=== PATIENT | female | born 1945 | race Two or more races ===

== ENCOUNTER → 2016-11-11 | Outpatient (CLI) | payer MEDICARE ==
--- NOTE | 2016-11-16 07:51 | MM ---
Reason for exam: screening (asymptomatic). Last mammogram was performed 1 year ago. History: Patient is postmenopausal. Family history of breast cancer in maternal aunt. Benign excisional biopsy of the right breast. Physical Findings: A clinical breast exam by your physician is recommended on an annual basis and results should be correlated with mammographic findings. MG 3D Screening Mammo W/Cad Bilateral CC and MLO view(s) were taken. Prior study comparison: November 11, 2015, bilateral MG 3d screening mammo w/cad. August 29, 2014, bilateral MG screening mammo w CAD. There are scattered fibroglandular densities. There is chronic nodularity in the left breast. No significant changes when compared with prior studies. ASSESSMENT: Benign, BI-RAD 2 RECOMMENDATION: Routine screening mammogram of both breasts in 1 year.
== END | disposition home or self-care (01) ==
LOC: RADMAMWWP 11:25
PROVIDERS: ATTEND Family Medicine
DX: Z12.31 Encounter for screening mammogram for malignant neoplasm of breast (principal)
CPT/HCPCS: 77063; G0202

== ENCOUNTER → 2017-07-04 | Outpatient (CLI) | payer MEDICARE ==
--- NOTE | 2017-07-06 10:01 | P.ARTDOP ---
Arterial Doppler LOWER EXTREMITY ARTERIAL DOPPLER: DATE OF SERVICE: 07/04/2017 Reason for study: Right great toe ulcer. Doppler waveforms: Multiphasic bilaterally throughout. Pulse volume recording: Fairly normal configuration. Pressure gradients: Mild gradient above the ankle. Ankle-brachial indices: 0.93 on the right and 0.83 on the left. Toe pressures: 81 on the right, 100 on the left Impression: Mild femoral popliteal disease. Toe perfusion probably adequate for healing..
== END | disposition home or self-care (01) ==
LOC: RADUSWWP 12:47
PROVIDERS: ATTEND Family Medicine
DX: I74.3 Embolism and thrombosis of arteries of the lower extremities (principal)
CPT/HCPCS: 93923

== ENCOUNTER → 2017-12-23 | Outpatient (CLI) | payer MEDICARE ==
--- NOTE | 2017-12-27 09:12 | MM ---
Reason for exam: screening (asymptomatic). Last mammogram was performed 1 year and 1 month ago. History: Patient is postmenopausal. Family history of breast cancer in maternal aunt. Benign excisional biopsy of the right breast. Physical Findings: A clinical breast exam by your physician is recommended on an annual basis and results should be correlated with mammographic findings. MG 3D Screening Mammo W/Cad Bilateral CC, MLO, and XCCL view(s) were taken. Prior study comparison: November 11, 2016, bilateral MG 3d screening mammo w/cad. November 11, 2015, bilateral MG 3d screening mammo w/cad. The breast tissue is heterogeneously dense. This may lower the sensitivity of mammography. Stable scattered bilateral regional calcifications. No significant changes when compared with prior studies. ASSESSMENT: Negative, BI-RAD 1 RECOMMENDATION: Routine screening mammogram of both breasts in 1 year.
== END | disposition home or self-care (01) ==
LOC: RADMAMWWP 13:51
PROVIDERS: ATTEND Family Medicine
DX: Z12.31 Encounter for screening mammogram for malignant neoplasm of breast (principal)
CPT/HCPCS: 77063; 77067

== ENCOUNTER → 2019-01-31 | Outpatient (CLI) | payer MEDICARE ==
--- NOTE | 2019-02-02 11:46 | MM ---
Reason for exam: screening (asymptomatic). Last mammogram was performed 1 year and 1 month ago. History: Patient is postmenopausal. Family history of breast cancer in maternal aunt. Benign excisional biopsy of the right breast. Physical Findings: A clinical breast exam by your physician is recommended on an annual basis and results should be correlated with mammographic findings. MG 3D Screening Mammo W/Cad Bilateral CC and MLO view(s) were taken. Prior study comparison: December 23, 2017, bilateral MG 3d screening mammo w/cad. November 11, 2016, bilateral MG 3d screening mammo w/cad. The breast tissue is heterogeneously dense. This may lower the sensitivity of mammography. Benign vascular and scattered punctate calcifications. Oil cyst calcifications right upper outer quadrant. No significant changes when compared with prior studies. ASSESSMENT: Benign, BI-RAD 2 RECOMMENDATION: Routine screening mammogram of both breasts in 1 year.
== END | disposition home or self-care (01) ==
LOC: RADMAMWWP 11:22
PROVIDERS: ATTEND Family Medicine
DX: Z12.31 Encounter for screening mammogram for malignant neoplasm of breast (principal); Z80.3 Family history of malignant neoplasm of breast
CPT/HCPCS: 77063; 77067

== ENCOUNTER → 2019-04-18 | Outpatient (CLI) | payer MEDICARE ==
[2019-04-18 15:29] LABS: African American GFR (CKD) >90 (>60 ml/min/1.73 sqM); Blood Urea Nitrogen 15 mg/dL (7-17); Non-African American GFR(CKD) >90 (>60 ml/min/1.73 sqM)
--- NOTE | 2019-04-18 16:14 | CT ---
EXAMINATION TYPE: CT brain w con DATE OF EXAM: 04/18/2019 COMPARISON: None HISTORY: Head trauma, back of head, from fall. Pt denies LOC/lacerations. C/o dizziness. CT DLP: 1133.30 mGycm Automated exposure control for dose reduction was used. CONTRAST: CT scan of the head is performed with IV Contrast, patient injected with 100 mL of Isovue 300. FINDINGS: There is no abnormal enhancing mass or midline shift identified. The ventricles and sulci are within normal limits in size. The globes are intact and the visualized sinuses are clear. IMPRESSION: No enhancing lesions seen. No this time.
== END | disposition home or self-care (01) ==
LOC: RADCTMAIN 14:49
PROVIDERS: ATTEND Family Medicine
DX: S09.8XXA Other specified injuries of head, initial encounter (principal)
CPT/HCPCS: 82565; 84520; 70460; 36415; Q9967

== ENCOUNTER → 2020-05-06 | Outpatient (CLI) | payer MEDICARE ==
--- NOTE | 2020-05-08 14:35 | MM ---
Reason for exam: screening (asymptomatic). Last mammogram was performed 1 year and 3 months ago. History: Patient is postmenopausal. Family history of breast cancer in maternal aunt. Benign excisional biopsy of the right breast. Physical Findings: A clinical breast exam by your physician is recommended on an annual basis and results should be correlated with mammographic findings. MG Screening Mammo w CAD Bilateral CC and MLO view(s) were taken. Prior study comparison: January 31, 2019, bilateral MG 3d screening mammo w/cad. December 23, 2017, bilateral MG 3d screening mammo w/cad. The breast tissue is heterogeneously dense. This may lower the sensitivity of mammography. Scattered punctate oil cyst and vascular calcifications. No significant changes when compared with prior studies. ASSESSMENT: Benign, BI-RAD 2 RECOMMENDATION: Routine screening mammogram of both breasts in 1 year.
== END | disposition home or self-care (01) ==
LOC: RADMAMWWP 13:35
PROVIDERS: ATTEND Family Medicine
DX: Z12.31 Encounter for screening mammogram for malignant neoplasm of breast (principal); Z80.3 Family history of malignant neoplasm of breast
CPT/HCPCS: 77067

== ENCOUNTER → 2021-04-23 | Outpatient (CLI) | payer MEDICARE | END | disposition home or self-care (01) | LOC: RADUSWWP 12:06 | PROVIDERS: ATTEND Family Medicine | DX: I73.9 Peripheral vascular disease, unspecified (principal) | CPT/HCPCS: 93922 ==

== ENCOUNTER 2021-09-17 05:54 | Day surgery (SDC) | payer MEDICARE ==
[2021-09-15 12:15] VITALS: BMI 32.3
[2021-09-17] MEDS ORDERED: SODIUM CHLORIDE 0.9% 1,000 ML in EMPTY BAG 1 BAG IV SCH ×2 (06:00→08:45)
[2021-09-17] MEDS ORDERED: NITROGLYCERIN SL TABS 0.4 MG TAB SUBLINGUAL PRN ×2 (06:00→08:34)
[2021-09-17] MEDS ORDERED: HEPARIN SODIUM,PORCINE 2,500 UNIT in SODIUM CHLORIDE 0.9% 250 ML IRRIGATION PRN (06:00)
[2021-09-17] MEDS ORDERED: ALPRAZolam 0.25 MG TAB PO PRN (06:00)
[2021-09-17] MEDS ORDERED: ALPRAZolam 0.5 MG TAB PO PRN (06:00)
[2021-09-17] MEDS ORDERED: SODIUM CHLORIDE 0.9% 1,000 ML IV ONE (06:08)
[2021-09-17 06:34] LABS: Glucose,Whole Blood 120 mg/dL (70-110)
[2021-09-17 06:35] VITALS: RESP 16; TEMP 99.1
[2021-09-17 06:44] LABS: Basophils # (A) 0.1 k/uL (0-0.2); Basophils % (A) 1 %; Eosinophils # (A) 0.2 k/uL (0-0.7); Eosinophils % (A) 3 %; HCT 34.1 % (34.0-46.0); HGB 11.4 gm/dL (11.4-16.0); Lymphocytes # (A) 1.3 k/uL (1.0-4.8); Lymphocytes % (A) 18 %; MCH 32.4 pg (25.0-35.0); MCHC 33.4 g/dL (31.0-37.0); Mean Platelet Volume 7.8; Monocytes # (A) 0.6 k/uL (0-1.0); Monocytes % (A) 8 %; Neutrophils # (A) 4.8 k/uL (1.3-7.7); Neutrophils % (A) 68 %; Platelet Count 179 k/uL (150-450); RBC 3.52 m/uL (3.80-5.40); RDW 13.2 % (11.5-15.5); WBC 7.1 k/uL (3.8-10.6)
[2021-09-17 06:57] LABS: African American GFR (CKD) >90 (>60 ml/min/1.73 sqM); Anion Gap 9 mmol/L; Blood Urea Nitrogen 25 mg/dL (7-17); Calcium 9.1 mg/dL (8.4-10.2); Carbon Dioxide 26 mmol/L (22-30); Chloride 104 mmol/L (98-107); Glucose 126 mg/dL (74-99); Non-African American GFR(CKD) 90 (>60 ml/min/1.73 sqM); Sodium 139 mmol/L (137-145)
[2021-09-17] MEDS ORDERED: ATORVASTATIN 80 MG TAB PO ONE (07:00)
[2021-09-17] MEDS ORDERED: HEPARIN SODIUM,PORCINE 10,000 UNIT in SODIUM CHLORIDE 0.9% 1,000 ML IRRIGATION PRN (07:00)
[2021-09-17] MEDS ORDERED: ASPIRIN 325 MG TAB PO ONE (07:00)
[2021-09-17] MEDS ORDERED: fentaNYL (PF) 50 MCG/ML 2 ML AMP ONE (07:21)
[2021-09-17] MEDS ORDERED: VERAPAMIL 2.5 MG/ML 2 ML AMP ONE (07:21)
[2021-09-17] MEDS ORDERED: HEPARIN SODIUM 1,000 UN/ML (10ML VL) ONE (07:22)
[2021-09-17] MEDS ORDERED: fentaNYL (PF) 50 MCG/ML 2 ML AMP IV ONE (07:32)
[2021-09-17] MEDS ORDERED: LIDOCAINE 1% INJ 10MG/ML (5 ML VIAL-PF) SQ ONE (07:34)
[2021-09-17] MEDS ORDERED: VERAPAMIL SYRINGE (5 MG/10 ML) INTRAARTER ONE (07:37)
[2021-09-17] MEDS: HEPARIN SODIUM 1,000 UN/ML (10ML VL) IV ONE ×3 (07:42→08:05)
[2021-09-17] MEDS ORDERED: CLOPIDOGREL 75 MG TAB ONE (07:47)
[2021-09-17] MEDS ORDERED: CLOPIDOGREL 75 MG TAB PO ONE (07:48)
[2021-09-17] MEDS ORDERED: IOPAMIDOL-370 125ML BTL INJ ONE ×2 (08:21→08:30)
[2021-09-17] MEDS ORDERED: ZOLPIDEM 5 MG TAB PO PRN (08:34)
[2021-09-17] MEDS ORDERED: MAG HYDROX/AL HYDROX/SIMETH 30 ML CUP PO PRN (08:34)
[2021-09-17] MEDS ORDERED: ATROPINE SULFATE 0.1 MG/ML 10ML SYRINGE IV PRN (08:34)
[2021-09-17] MEDS ORDERED: RX INFO: IV CONTRAST WAS GIVEN 1 EACH MISC MISCELLANE PRN (08:34)
--- NOTE | 2021-09-17 08:45 | P.CARDCATH ---
Date of Procedure: 09/17/21 Description of Procedure: Cardiac Catheterization: The patient is a 76-year-old female with a known history of hypertension, hyperlipidemia and diabetes mellitus who has been complaining of symptoms of chest discomfort and had an abnormal MPI with anterior wall reversible defect. Recommendations were made regarding cardiac catheterization, the risks and the complications were discussed with the patient who is in full understanding and agreement. Procedure Description: Patient was brought to laborer wrecking and salvaging in fasting semi-sedated state after receiving Fentanyl and Benadryl achieiving moderate conscious sedated state. Using Xylocaine Anesthesia and Seldinger technique, a 6-Egyptian sheath was introduced in the right radial artery . Subsequently, selective coronary angiography was performed using a 5-Egyptian 3- 1/2 bend Sebas catheter. Multiple views of the coronary artery including hemiaxial views were obtained. The 5-Egyptian Pigtail catheter was used to cross the aortic valve and LVEDP was calculated. Following that a 6-Egyptian CLS 3.5 guiding catheter was introduced and the system and a 0.014 BMW with a straight find cross microcatheter were introduced and the system. There was inability to cross the total occlusion of the LAD, the wire was exchanged to a 0.014 whisper J-wire that was unsuccessful as well and subsequently to a Fielder XT wire. Subsequently the microcatheter was exchanged to a Corsair microcatheter and using the Fielder XT proximal segment of the total occlusion couldn't be crossed but could not connect to the distal. Images were obtained and revealed no evidence of perforations. Following that, catheter and sheath were removed. Hemostasis was obtained with deployment of TR band . There was no immediate complication. Patient was returned to room in stable condition. Of note, the patient received a total of 7500 units of intravenous heparin as well as intra-arterial verapamil. She received an oral loading dose of clopidogrel There was no immediate complications. Findings: Fluoroscopy there is severe calcifications involving the LAD. Left main: This is a large size vessel, bifurcating into LAD and left circumflex, left main has no high-grade stenosis LAD: This vessel is heavily calcified proximally, the vessel is totally occluded proximally with a long segment of occlusion with minimal retrograde filling through ipsilateral collaterals distally. Left circumflex: This is a nondominant vessel, large in caliber, giving rise to 2 obtuse marginal branch that have mild to moderate obstructive disease of 30- 40% with no high-grade stenosis. RCA: This is a large dominant vessel bifurcating distally into PDA and PLV, the RCA has no evidence of high-grade stenosis, mild intimal disease was noted. Has retrograde collaterals through the septal to the distal LAD. Left Ventriculogram: Not performed Hemodynamics: There was no gradient across the aortic valve, LVEDP is 18-20 mmHg Conclusion: 1. Calcified proximal LAD was chronic total occlusion 2. Mild disease in the left circumflex and RCA 3. Unsuccessful recanalization of the LAD. Recommendations: I'll continue medical therapy at this time and will evaluate the patient to undergo repeat procedure with revascularization of the MEDICAL STAFF CREDENTIALING COORDINATOR of the LAD. The findings and recommendations were discussed with the patient and her family and they are in full understanding and agreement. Duration of sedation is 55 minutes.
[2021-09-17 13:28] VITALS: BP 132/65; PULSE 62
[2021-09-17] MEDS ORDERED: METOPROLOL TARTRATE 50 MG TAB PO SCH (21:00)
[2021-09-18] MEDS ORDERED: ATORVASTATIN 20 MG TAB PO SCH (09:00)
[2021-09-18] MEDS ORDERED: ASPIRIN 81 MG PO SCH (09:00)
[2021-09-18] MEDS ORDERED: CLOPIDOGREL 75 MG TAB PO SCH (09:00)
== END 2021-09-17 13:29 | disposition home or self-care (01) ==
LOC: CATHCVL 05:54
PROVIDERS: ATTEND Internal Medicine Interventional Cardiology
DX: I25.10 Atherosclerotic heart disease of native coronary artery without angina pectoris (principal); I25.84 Coronary atherosclerosis due to calcified coronary lesion; I25.82 Chronic total occlusion of coronary artery; I10 Essential (primary) hypertension; E78.2 Mixed hyperlipidemia; Z20.822 Contact with and (suspected) exposure to COVID-19; E11.9 Type 2 diabetes mellitus without complications; E78.00 Pure hypercholesterolemia, unspecified; R94.39 Abnormal result of other cardiovascular function study; Z82.49 Family history of ischemic heart disease and other diseases of the circulatory system; Z79.84 Long term (current) use of oral hypoglycemic drugs; Z79.82 Long term (current) use of aspirin; Z79.899 Other long term (current) drug therapy; Z88.8 Allergy status to other drugs, medicaments and biological substances
CPT/HCPCS: 93458; 80048; 85025; 87635; C1769 ×5; C1887; C1894; C1751; J2001; J3010; J1644; Q9967

== ENCOUNTER 2021-10-20 10:22 | Day surgery (SDC) | payer MEDICARE ==
[2021-10-16 10:24] VITALS: BMI 31.8
[~2021-10-20 10:22] MED LIST: ALPRAZolam 0.25 MG TAB PO PRN; ALPRAZolam 0.5 MG TAB PO PRN; ASPIRIN 325 MG TAB PO STA; ATORVASTATIN 80 MG TAB PO STA; HEPARIN SODIUM,PORCINE 10,000 UNIT in SODIUM CHLORIDE 0.9% 1,000 ML IRRIGATION PRN; HEPARIN SODIUM,PORCINE 2,500 UNIT in SODIUM CHLORIDE 0.9% 250 ML IRRIGATION PRN; NITROGLYCERIN SL TABS 0.4 MG TAB SUBLINGUAL PRN
[2021-10-20 10:58] LABS: Glucose,Whole Blood 45 mg/dL (70-110)
[2021-10-20] MEDS ORDERED: amLODIPine 5 MG TAB PO STA (11:11)
[2021-10-20 11:12] LABS: Basophils % (A) 1 %; Eosinophils # (A) 0.2 k/uL (0-0.7); Eosinophils % (A) 3 %; HCT 36.4 % (34.0-46.0); HGB 11.9 gm/dL (11.4-16.0); Lymphocytes % (A) 16 %; MCH 31.4 pg (25.0-35.0); MCHC 32.7 g/dL (31.0-37.0); MCV 96.1 fL (80.0-100.0); Mean Platelet Volume 7.8; Monocytes # (A) 0.5 k/uL (0-1.0); Monocytes % (A) 8 %; Neutrophils # (A) 4.5 k/uL (1.3-7.7); Neutrophils % (A) 71 %; Platelet Count 179 k/uL (150-450); RBC 3.78 m/uL (3.80-5.40); RDW 12.8 % (11.5-15.5); WBC 6.4 k/uL (3.8-10.6)
[2021-10-20 11:12] LABS: Glucose,Whole Blood 125 mg/dL (70-110)
[2021-10-20] MEDS: SODIUM CHLORIDE 0.9% 1,000 ML in EMPTY BAG 1 BAG IV SCH ×2 (11:12→18:37)
[2021-10-20] MEDS ORDERED: VERAPAMIL 2.5 MG/ML 2 ML AMP ONE (12:35)
[2021-10-20] MEDS ORDERED: fentaNYL (PF) 50 MCG/ML 2 ML AMP ONE (12:45)
[2021-10-20] MEDS ORDERED: HEPARIN SODIUM 1,000 UN/ML (10ML VL) ONE (12:45)
[2021-10-20] MEDS ORDERED: fentaNYL (PF) 50 MCG/ML 2 ML AMP IV ONE (12:49)
[2021-10-20] MEDS: LIDOCAINE 1% INJ 10MG/ML (30 ML VIAL-PF) SQ ONE ×2 (12:53→12:58)
[2021-10-20] MEDS ORDERED: VERAPAMIL SYRINGE (5 MG/10 ML) INTRAARTER ONE (12:53)
[2021-10-20] MEDS: HEPARIN SODIUM 1,000 UN/ML (10ML VL) IV ONE ×2 (13:03→13:20)
[2021-10-20 13:33] LABS: African American GFR (CKD) >90 (>60 ml/min/1.73 sqM); Anion Gap 14 mmol/L; Blood Urea Nitrogen 18 mg/dL (7-17); Calcium 8.9 mg/dL (8.4-10.2); Carbon Dioxide 23 mmol/L (22-30); Chloride 101 mmol/L (98-107); Glucose 132 mg/dL (74-99); Non-African American GFR(CKD) >90 (>60 ml/min/1.73 sqM); Potassium 3.9 mmol/L (3.5-5.1); Sodium 138 mmol/L (137-145)
[2021-10-20] MEDS ORDERED: hydrALAZINE HCL 20 MG/ML 1 ML VIAL ONE ×2 (14:05→14:12)
[2021-10-20] MEDS ORDERED: hydrALAZINE HCL 20 MG/ML 1 ML VIAL IV ONE ×2 (14:06→14:13)
[2021-10-20] MEDS ORDERED: IOPAMIDOL-370 125ML BTL INJ ONE ×2 (14:15→14:16)
[2021-10-20] MEDS ORDERED: RX INFO: IV CONTRAST WAS GIVEN 1 EACH MISC MISCELLANE PRN (14:24)
[2021-10-20] MEDS ORDERED: NITROGLYCERIN SL TABS 0.4 MG TAB SUBLINGUAL PRN (14:24)
[2021-10-20] MEDS ORDERED: ATROPINE SULFATE 0.1 MG/ML 10ML SYRINGE IV PRN (14:24)
[2021-10-20] MEDS ORDERED: MAG HYDROX/AL HYDROX/SIMETH 30 ML CUP PO PRN (14:24)
[2021-10-20] MEDS ORDERED: ZOLPIDEM 5 MG TAB PO PRN (14:24)
[2021-10-20] MEDS ORDERED: SODIUM CHLORIDE 0.9% 1,000 ML in EMPTY BAG 1 BAG IV SCH (14:30)
--- NOTE | 2021-10-20 14:36 | P.CARDCATH ---
Date of Procedure: 10/20/21 Description of Procedure: PERCUTANEOUS TRANSLUMINAL CORONARY ANGIOPLASTY Operators: Eyad Bacon M.D. CLINICAL INFORMATION: The patient is a 76-year-old female with known history of hypertension, hyperlipidemia and diabetes mellitus who had an abnormal MPI symptoms of dyspnea on exertion. She underwent cardiac catheterization that showed a calcified LAD with total occlusion in the proximal segment with retrograde filling. Attempt to recanalize that this for weeks ago were uns uccessful. Recommendations to attempt repeat PCI for [employer] was discussed with the patient.. Recommendations were made regarding angioplasty and stenting. The procedure as well as the risks and the complications were discussed with the patient who was in full understanding and agreement. PROCEDURE: The patient was brought in the cardiac cath lab manager the fasting and semi-sedated state after receiving fentanyl and Benadryl. Using Xylocaine anesthesia and the Seldinger technique a 6-Northern Irish sheath was introduced in the right radial artery. Using ultrasound guided technique and micropuncture catheter an 8-Northern Irish was introduced in the right femoral artery. A 6 Northern Irish right right Sebas 4 bent guiding catheter was introduced into the system. Following that an 8-Northern Irish EBU 3.5 guiding catheter was advanced and the left main was cannulated. Dual injections were performed. After obtaining the images a 6-Northern Irish guide liner, a Corsair catheter and a 0.014 BMW wire was advanced. The wire was advanced in the LAD, following that the Corsair catheter was advanced and the wires was exchanged to 0.014 Fielder X wire was advanced. Multiple attempt to cross this total occlusion were unsuccessful. The wire was removed and a co pilot co pilot 200 wire was advanced and subsequently attempts to advance a Eddy to wire were unsuccessful in crossing the total occlusion. The patient did not have any chest discomfort. At that point, the guiding catheter were removed. the radial sheath was removed and hemostasis was obtained with deployment of a TR band, the right femoral sheath was removed and hemostasis was obtained with an 8-Northern Irish Angio-Seal. There was no immediate complications. The patient was returned to her room in stable condition. She received a total of 6000 units of heparin, her ACT was followed. She received intra-arterial verapamil. RESULT Unsuccessful recanalization of a heavily calcified chronic total occlusion of the mid LAD. RECOMMENDATIONS: At this time I would continue medical therapy depending on her progress further recommendations will be made. The findings and recommendations were discussed with the patient and the family, they are in full understanding and agreement. Duration of sedation: 90 minutes
[2021-10-20 17:30] LABS: Glucose,Whole Blood 234 mg/dL (70-110)
[2021-10-20 20:19] LABS: Glucose,Whole Blood 217 mg/dL (70-110)
[2021-10-20] MEDS: METOPROLOL TARTRATE 50 MG TAB PO SCH (21:13)
[2021-10-21 05:20] LABS: African American GFR (CKD) >90 (>60 ml/min/1.73 sqM); Anion Gap 12 mmol/L; Blood Urea Nitrogen 19 mg/dL (7-17); Calcium 8.3 mg/dL (8.4-10.2); Carbon Dioxide 22 mmol/L (22-30); Chloride 100 mmol/L (98-107); Glucose 161 mg/dL (74-99); Non-African American GFR(CKD) 86 (>60 ml/min/1.73 sqM); Potassium 4.2 mmol/L (3.5-5.1); Sodium 134 mmol/L (137-145)
[2021-10-21] MEDS: SODIUM CHLORIDE 0.9% 1,000 ML in EMPTY BAG 1 BAG IV SCH (06:19)
--- NOTE | 2021-10-21 07:01 | P.PN ---
Subjective Progress Note Date: 10/21/21 PROGRESS NOTE The patient is a 76-year-old female with a known history of CAD, chronically occluded calcified mid LAD. She underwent attempt at recanalization of the LAD with successful recanalization. She is doing well this morning. She denies any chest discomfort, dizziness or palpitations. She is ambulating without difficulty. She denies any PND, orthopnea or peripheral edema. Medications: Amlodipine 5 mg daily, aspirin once a day, Lipitor 20 mg daily, Plavix 75 mg daily, metoprolol 50 mg twice a day PHYSICAL EXAMINATION: Blood pressure 139/65 heart rate 61 LUNGS: Clear to auscultation HEART: Regular rate and rhythm, S1, S2. No S3. systolic ejection murmur ABDOMEN: Soft, nontender, no organomegaly EXTREMETIES: No edema, right groin no hematoma, right radial pulse intact LAB: Potassium 4.2, BUN 19, creatinine 0.68 IMPRESSION: 1. Chronically occluded mid LAD, unsuccessful recanalization 2. History of hypertension 3. History of hyperlipidemia 4. History of diabetes PLAN: 1. Continue present therapy 2. Discharged home today 3. And follow-up as an outpatient for further management. Objective - Vital Signs Vital signs: Vital Signs Temp 98.7 F 10/21/21 02:51 Pulse 61 10/21/21 02:51 Resp 16 10/21/21 02:51 BP 139/65 10/21/21 02:51 Pulse Ox 98 10/21/21 02:51 FiO2 Intake & Output 10/20/21 10/20/21 10/21/21 06:59 18:59 06:59 Intake Total 500 Balance 500 Weight 86.1 kg Intake: IV 500 Other: Voiding Method Bedside Commode Toilet # Voids 1 3 # Bowel Movements 1 1 - Labs CBC & Chem 7: 10/20/21 10:50 10/21/21 03:42 Labs: Abnormal Lab Results - Last 24 Hours (Table) 10/20/21 10/20/21 10/20/21 Range/Units 10:50 10:57 11:01 RBC 3.78 L (3.80-5.40) m/uL Sodium (137-145) mmol/L BUN (7-17) mg/dL Creatinine (0.52-1.04) mg/dL Glucose (74-99) mg/dL POC Glucose (mg/dL) 45 L 125 H (70-110) mg/dL Calcium (8.4-10.2) mg/dL 10/20/21 10/20/21 10/20/21 Range/Units 13:06 17:29 20:17 RBC (3.80-5.40) m/uL Sodium (137-145) mmol/L BUN 18 H (7-17) mg/dL Creatinine 0.51 L (0.52-1.04) mg/dL Glucose 132 H (74-99) mg/dL POC Glucose (mg/dL) 234 H 217 H (70-110) mg/dL Calcium (8.4-10.2) mg/dL 10/21/21 Range/Units 03:42 RBC (3.80-5.40) m/uL Sodium 134 L (137-145) mmol/L BUN 19 H (7-17) mg/dL Creatinine (0.52-1.04) mg/dL Glucose 161 H (74-99) mg/dL POC Glucose (mg/dL) (70-110) mg/dL Calcium 8.3 L (8.4-10.2) mg/dL
[2021-10-21 07:02] LABS: Glucose,Whole Blood 133 mg/dL (70-110)
[2021-10-21 07:33] VITALS: BP 173/65; PULSE 63; RESP 18; TEMP 98.8
[2021-10-21] MEDS: METOPROLOL TARTRATE 50 MG TAB PO SCH (08:18)
[2021-10-21] MEDS ORDERED: ATORVASTATIN 20 MG TAB PO SCH (09:00)
[2021-10-21] MEDS ORDERED: CLOPIDOGREL 75 MG TAB PO SCH (09:00)
[2021-10-21] MEDS ORDERED: ASPIRIN 81 MG PO SCH (09:00)
== END 2021-10-21 10:38 | disposition home or self-care (01) ==
LOC: CATHCVL 10:22 → 6NMEDSUR 14:49 → CATHCVL 10-21 10:38
PROVIDERS: ATTEND Internal Medicine Interventional Cardiology
DX: I25.10 Atherosclerotic heart disease of native coronary artery without angina pectoris (principal); I25.84 Coronary atherosclerosis due to calcified coronary lesion; I25.82 Chronic total occlusion of coronary artery; Z20.822 Contact with and (suspected) exposure to COVID-19
CPT/HCPCS: 92943; 80048 ×2; 85025; 87635; C1769 ×7; C1760; C1887 ×3; C1894 ×3; C1751; J0360; J2001; J3010; J1644; Q9967

== ENCOUNTER → 2022-09-28 | Outpatient (CLI) | payer MEDICARE, OTHER ==
--- NOTE | 2022-09-29 09:27 | CA ---
Transthoracic Echo Report Name: Lizzette Tay Age: 77 Gender: F : 1945 Exam Date: 09/28/2022 14:16 Exam Location: [facility] Ht (in): 64 Wt (lb): 189 Ordering Physician: Evens Dang MD Attending/Referring Phys: [id number], [place] Chief Of Production Vangie Nava RDCS Procedure CPT: Indications: I25.10 ATHSCL HEART DISEASE OF [place] CORONARY ART Cardiac Hx: Technical Quality: Good Contrast 1: Total Dose (mL): Contrast 2: Total Dose (mL): MEASUREMENTS (Male / Female) Normal Values 2D ECHO LV Diastolic Diameter PLAX 5.4 cm 4.2 - 5.9 / 3.9 - 5.3 cm LV Systolic Diameter PLAX 3.5 cm IVS Diastolic Thickness 1.2 cm 0.6 - 1.0 / 0.6 - 0.9 cm LVPW Diastolic Thickness 1.3 cm 0.6 - 1.0 / 0.6 - 0.9 cm LV Relative Wall Thickness 0.5 RV Internal Dim ED PLAX 4.1 cm LA Systolic Diameter LX 4.8 cm 3.0 - 4.0 / 2.7 - 3.8 cm LV Diastolic Volume MOD 4C 85.1 cm??? LV Systolic Volume MOD 4C 41.9 cm??? LV Ejection Fraction MOD 4C 50.8 % LV Cardiac Index MOD 4C 1468.5 cm???/min???m??? LV Diastolic Length 4C 7.9 cm LV Systolic Length 4C 6.6 cm LV Diastolic Volume MOD 2C 77.2 cm??? LV Systolic Volume MOD 2C 39.0 cm??? LV Ejection Fraction MOD 2C 49.6 % LV Cardiac Index MOD 2C 1301.3 cm???/min???m??? LV Diastolic Length 2C 8.1 cm LV Systolic Length 2C 6.7 cm LA Volume 116.7 cm??? 18 - 58 / 22 - 52 cm??? M-MODE Aortic Root Diameter MM 3.4 cm MV E Point Septal Separation 0.7 cm AV Cusp Separation MM 2.1 cm DOPPLER AV Peak Velocity 133.7 cm/s AV Peak Gradient 7.2 mmHg AI Peak Velocity 426.5 cm/s AI Peak Gradient 72.8 mmHg AI Pressure Half Time 322.1 ms MV Area PHT 4.5 cm??? Mitral E Point Velocity 136.2 cm/s Mitral A Point Velocity 98.6 cm/s Mitral E to A Ratio 1.4 MV Deceleration Time 169.4 ms TR Peak Velocity 334.6 cm/s TR Peak Gradient 44.8 mmHg Right Ventricular Systolic Press 48.5 mmHg FINDINGS Left Ventricle Left ventricular ejection fraction is estimated at 55 %. Mildly increased septal wall thickness. Mildly increased posterior wall thickness. Normal LV size. No obvious regional wall motion abnormality. Grade 2 diastolic dysfunction Right Ventricle Moderate right ventricular dilatation. Moderate pulmonary hypertension. Right ventricular systolic pressure estimated at 50 mm hg. Right Atrium Normal right atrial size. Left Atrium Moderate left atrial dilatation Mitral Valve Mitral valve thickened. Mild mitral regurgitation. Aortic Valve Trileaflet aortic valve. Focal thickening of the aortic valve cusps. Moderate aortic regurgitation. Tricuspid Valve Structurally normal tricuspid valve. Mild tricuspid regurgitation. Pulmonic Valve Structurally normal pulmonic valve. Mild pulmonic regurgitation. Pericardium Normal pericardium. Small pericardial effusion by LV Aorta Normal size aortic root and proximal ascending aorta. CONCLUSIONS Normal LV size and systolic function. Estimated LVEF 55-60% Moderate concentric LVH No regional wall motion abnormality Grade 2 diastolic dysfunction Moderate aortic regurgitation Moderate left atrial dilatation Moderate pulmonary hypertension with RVSP estimated at 50 mmHg Previewed by: Sandeep Marrero MD Dr Anubhav Jain (Electronically Signed) Final Date: 28 September 2022 15:52
== END | disposition home or self-care (01) ==
LOC: RADECHMAIN 14:09
PROVIDERS: ATTEND Internal Medicine Cardiovascular Disease
DX: I25.10 Atherosclerotic heart disease of native coronary artery without angina pectoris (principal); I35.1 Nonrheumatic aortic (valve) insufficiency; I27.0 Primary pulmonary hypertension; I50.30 Unspecified diastolic (congestive) heart failure
CPT/HCPCS: 93306

== ENCOUNTER → 2023-12-21 | Outpatient (CLI) | payer MEDICARE ==
--- NOTE | 2023-12-22 07:26 | CA ---
Transthoracic Echo Report Name: Lizzette Tay Age: 78 Gender: F : 1945 Exam Date: 12/21/2023 16:25 Exam Location: [facility] Ht (in): 64 Wt (lb): 198 Ordering Physician: Evens Dang MD Attending/Referring Phys: Evens Dang MD Belt Glass Sander Vangie Nava RDCS Procedure CPT: Indications: HTN Cardiac Hx: Technical Quality: Good Contrast 1: Total Dose (mL): Contrast 2: Total Dose (mL): MEASUREMENTS (Male / Female) Normal Values 2D ECHO LV Diastolic Diameter PLAX 5.8 cm 4.2 - 5.9 / 3.9 - 5.3 cm LV Systolic Diameter PLAX 4.3 cm IVS Diastolic Thickness 1.4 cm 0.6 - 1.0 / 0.6 - 0.9 cm LVPW Diastolic Thickness 1.5 cm 0.6 - 1.0 / 0.6 - 0.9 cm LV Relative Wall Thickness 0.5 RV Internal Dim ED PLAX 4.0 cm LA Systolic Diameter LX 5.2 cm 3.0 - 4.0 / 2.7 - 3.8 cm LV Diastolic Volume MOD BP 150.9 cm??? 67 - 155 / 56 - 104 cm??? LV Systolic Volume MOD BP 58.1 cm??? - 58 / 19 - 49 cm??? LV Ejection Fraction MOD BP 61.5 % >= 55 % LV Cardiac Index MOD BP 3168.1 cm???/min???m??? LV Diastolic Volume MOD 4C 106.8 cm??? LV Systolic Volume MOD 4C 39.7 cm??? LV Ejection Fraction MOD 4C 62.8 % LV Cardiac Index MOD 4C 2290.1 cm???/min???m??? LV Diastolic Length 4C 8.3 cm LV Systolic Length 4C 6.8 cm LV Diastolic Volume MOD 2C 109.9 cm??? LV Systolic Volume MOD 2C 51.3 cm??? LV Ejection Fraction MOD 2C 53.3 % LV Cardiac Index MOD 2C 2000.2 cm???/min???m??? LV Diastolic Length 2C 7.7 cm LV Systolic Length 2C 6.8 cm LA Volume 125.1 cm??? 18 - 58 / 22 - 52 cm??? LA Volume Index 61.0 cm???/m??? 16 - 28 cm???/m??? M-MODE Aortic Root Diameter MM 3.4 cm AV Cusp Separation MM 2.4 cm DOPPLER AV Peak Velocity 169.8 cm/s AV Peak Gradient 11.5 mmHg AV Mean Velocity 115.7 cm/s AV Mean Gradient 5.9 mmHg AV Velocity Time Integral 43.2 cm AI Peak Velocity 456.6 cm/s AI Peak Gradient 83.4 mmHg AI Pressure Half Time 432.1 ms LVOT Peak Velocity 93.7 cm/s LVOT Peak Gradient 3.5 mmHg LVOT Velocity Time Integral 23.0 cm MV Area PHT 4.7 cm??? Mitral E Point Velocity 115.4 cm/s Mitral A Point Velocity 99.8 cm/s Mitral E to A Ratio 1.2 MV Deceleration Time 163.1 ms TR Peak Velocity 339.6 cm/s TR Peak Gradient 46.1 mmHg Right Ventricular Systolic Press 50.6 mmHg FINDINGS Left Ventricle Left ventricular ejection fraction is estimated at 50-55 %. Moderately increased left ventricular wall thickness. Mild left ventricular dilatation. Right Ventricle Mild right ventricular dilatation. Moderate pulmonary hypertension. Right ventricular systolic pressure estimated at 51 mm hg. Right Atrium Normal right atrial size. No right atrial thrombus or mass seen. Left Atrium Severely increased left atrial diameter. Severely increased left atrial volume. Moderately increased left atrial area. No left atrial thrombus or mass present. Mitral Valve Structurally normal mitral valve. Moderate Mitral annular calcification. Mild to moderate mitral regurgitation. Aortic Valve Trileaflet aortic valve. No aortic stenosis. Mild aortic regurgitation. Tricuspid Valve Structurally normal tricuspid valve. Moderate tricuspid regurgitation. Pulmonic Valve Structurally normal pulmonic valve. Trace pulmonic regurgitation. Pericardium Small pericardial effusion. Aorta Normal size aortic root and proximal ascending aorta. CONCLUSIONS 1. Left ventricular size mildly dilated with borderline left ventricular systolic function 2. [id number] mitral regurgitation 3. Moderate tricuspid regurgitation with moderate pulmonary hypertension 4. Mild aortic regurgitation Previewed by: Dr. Chidi Zheng MD (Electronically Signed) Final Date: 22 December 2023 07:25
== END | disposition home or self-care (01) ==
LOC: RADECHMAIN 16:14
PROVIDERS: ATTEND Internal Medicine Cardiovascular Disease
DX: I10 Essential (primary) hypertension (principal)
CPT/HCPCS: 93306